=== PATIENT | male | born 1980 | race Caucasian/White ===

== ENCOUNTER 2016-11-08 05:55 | Emergency (ER) | payer MEDICAID ==
[~2016-11-08] VITALS: Ht 175.3 cm; Wt 89.3 kg
[2016-11-08 06:59] LABS: BLOOD UREA NITROGEN 26 mg/dL (7-18)
[2016-11-08 07:55] VITALS: BP 135/76
== END 2016-11-08 08:11 | disposition home or self-care (01) ==
LOC: ED 07:31
DX: M79.651 Pain in right thigh (principal); M79.652 Pain in left thigh; L03.115 Cellulitis of right lower limb; L03.116 Cellulitis of left lower limb; Z87.891 Personal history of nicotine dependence
CPT/HCPCS: 36415; 80048; 82040; 82550; 85025; 99284

== ENCOUNTER 2016-11-13 09:53 | Emergency (ER) | payer MEDICAID ==
[~2016-11-13] VITALS: Ht 175.3 cm; Wt 88.4 kg
[2016-11-13 10:03] VITALS: BP 205/127
== END 2016-11-13 12:01 | disposition home or self-care (01) ==
LOC: ED 11:36
DX: L03.116 Cellulitis of left lower limb (principal); L03.115 Cellulitis of right lower limb; M79.672 Pain in left foot; M79.671 Pain in right foot; S90.822A Blister (nonthermal), left foot, initial encounter; S90.821A Blister (nonthermal), right foot, initial encounter
CPT/HCPCS: 93005

== ENCOUNTER 2016-11-20 00:22 | Emergency (ER) | payer MEDICAID ==
[~2016-11-20] VITALS: Ht 175.3 cm; Wt 89.7 kg
[2016-11-20 00:57] VITALS: BP 145/90
[2016-11-20] MEDS ORDERED: CLINDAMYCIN 150 MG/ML, 6ML IM ONE (02:00)
== END 2016-11-20 02:32 | disposition home or self-care (01) ==
LOC: ED 02:15
DX: L03.115 Cellulitis of right lower limb (principal); Z72.9 Problem related to lifestyle, unspecified
CPT/HCPCS: 96372

== ENCOUNTER 2016-12-30 20:40 | Emergency (ER) | payer MEDICAID ==
[~2016-12-30] VITALS: Ht 175.3 cm; Wt 82.0 kg
[2016-12-30 22:13] VITALS: BP 137/89
== END 2016-12-30 22:19 | disposition home or self-care (01) ==
LOC: ED 21:08
DX: M19.271 Secondary osteoarthritis, right ankle and foot (principal)
CPT/HCPCS: 99284

== ENCOUNTER 2016-12-31 09:06 | Emergency (ER) | payer MEDICAID | END 2016-12-31 09:53 | disposition left against medical advice (07) | LOC: ED 09:15 | DX: Z48.01 Encounter for change or removal of surgical wound dressing (principal); Z53.21 Procedure and treatment not carried out due to patient leaving prior to being seen by health care provider ==

== ENCOUNTER 2016-12-31 11:43 | Emergency (ER) | payer MEDICAID ==
[~2016-12-31] VITALS: Ht 175.3 cm; Wt 81.7 kg
[2016-12-31 11:50] VITALS: BP 151/68
== END 2016-12-31 12:40 | disposition home or self-care (01) ==
LOC: ED 12:00
DX: M79.671 Pain in right foot (principal); F15.10 Other stimulant abuse, uncomplicated; Z87.891 Personal history of nicotine dependence
CPT/HCPCS: 99281

== ENCOUNTER 2018-05-12 19:06 | Emergency (ER) | payer MEDICAID ==
[~2018-05-12] VITALS: Ht 177.8 cm; Wt 85.0 kg
[2018-05-12 19:08] VITALS: BP 169/101
--- NOTE | 2018-05-12 19:14 | NUR ---
PT BIBA FOR MEDICAL CLEARANCE. PT IS IN CUSTODY WITH [employer]. PT WAS FOUND TO BE BREAKING INTO A BUILDING ON [employer]. PT IS A&O, BUT IS SLOW TO RESPOND TO QUESTIONS. PT HAS A HX OF METH USE, LAST USE WAS "OVER 24 HOURS AGO." PT PLACED ON CONT. SPO2, CARDIAC, AND BP MONITOR.
--- NOTE | 2018-05-12 19:17 | NUR ---
HELEN MARTELL AT BEDSIDE
--- NOTE | 2018-05-12 20:05 | NUR ---
Jf robles in [facility] - 05/12/18 at 2005 by RORY DISCUSSED WITH PATIENT KATALINA
--- NOTE | 2018-05-12 20:05 | NUR ---
DISCUSSED WITH PATIENT FOLLOW UP AND RESOURCES. PT ELOPED PRIOR TO RECEIVING DC PAPERWORK.
== END 2018-05-12 20:07 | disposition left against medical advice (07) ==
LOC: ED 20:00
DX: R41.82 Altered mental status, unspecified (principal); F15.10 Other stimulant abuse, uncomplicated; R53.83 Other fatigue; F17.210 Nicotine dependence, cigarettes, uncomplicated
CPT/HCPCS: 93005; 99284